=== PATIENT | female | born 1970 | race Caucasian/White ===

== ENCOUNTER 2018-08-14 09:01 | Outpatient (CLI) | payer OTHER ==
[~2018-08-14 09:01] MED LIST: SEPTRA 80-400 T1 TAB PO
== END 2018-08-14 09:55 | disposition home or self-care (01) ==
LOC: LAB 09:01
DX: D64.89 Other specified anemias (principal); I10 Essential (primary) hypertension; E78.4 Other hyperlipidemia; E03.8 Other specified hypothyroidism; M81.0 Age-related osteoporosis without current pathological fracture; M06.09 Rheumatoid arthritis without rheumatoid factor, multiple sites; M32.8 Other forms of systemic lupus erythematosus

== ENCOUNTER → 2018-08-18 | Outpatient (CLI) | payer OTHER | END | disposition home or self-care (01) | LOC: NUCLEAR 09:30 | DX: M06.4 Inflammatory polyarthropathy (principal) | CPT/HCPCS: 78315; A9503 ==